=== PATIENT | female | born 2000 | race Caucasian/White ===

== ENCOUNTER 2025-04-09 11:11 | Emergency (ER) | payer OTHER, SELFPAY ==
--- OUTSIDE RECORDS SUMMARY | 2025-04-09 11:14 | XMS_ITS | Clinical Summary ---
Author Organization [facility] Address [address] [place] [address] Care Team Providers Care Quality Control Chemist Name Role Phone None, Provider MD Unavailable Unavailable None, Provider MD Primary Care Provider Unavaila ble Allergies No known active allergies Medications omeprazole (PRILOSEC) 20 MG capsule Take 2 capsules (40 mg total) by mouth 2 (two) times a day. Active ondansetron (ZOFRAN-ODT) 4 MG disintegrating tablet Take 1 tablet (4 mg total) by mouth every 8 (eight) hours as needed for Nausea. 20 tablet 07/12/20 24 Active Additional Information Patient not taking.Reported on 09/10/2024 HYDROcodone-acetam inophen (NORCO) 5-325 MG tabletIndications: Acute Pain < 3 Day Supply Take 1 tablet by mouth every 6 (six) hours as needed for Pain. Indications: Acute Pain < 3 Day Supply 10 tablet 07/12/20 24 Active Additional Information Patient not taking.Reported on 09/10/2024 Active Problems Problem Noted Date Diagnosed Date Closed fracture of proximal phalanx of thumb 05/2025 Constipation 09/10/2024 Contact dermatitis 09/10/2024 Overview (09/10/2024): moisture dermatitis with chapped irritated skin at hands after chronic washing. reassure. suggest aggressive lubrication with thick emolient. should only require use of triamcinalone if inflammation develops. 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 Follow-up sooner for failure to improve, adverse reaction to medications or other concerns. Closed fracture involving joint 09/10/2024 Person consulting on behalf of another person Encounter for childcare instruction 09/10/2024 Diabetic eye exam ([facility]) 09/10/2024 Follow-up examination 09/10/2024 Overview (09/10/2024): Discussed options for Rx and recommended use of peeling agent. Lesions pared to remove tip of verrucous tissue as well as epidermal callus. Advised application of Mediplast each night with removal each AM and RTC 2-3wk for repeat paring. Nonspecific syndrome suggestive of viral illness 09/10/2024 Overview (09/10/2024): Negative rapid. Push fluids, rest, motrin or tylenol for pain or fevers. Will await results of strep screen. Discussed reasons for follow up at length with mother.. Postconcussion syndrome 09/10/2024 Rash 09/10/2024 Wart of hand 09/10/2024 Cholelithiasis 07/08/2024 Cholelithiases 07/08/2024 Calculus of common bile duct with obstruction External hemorrhoid 11/14/2023 Abdominal pain 11/14/2023 Closed fracture of head of right radius 04/09/20 23 Arthralgia of right elbow 04/09/2023 Right wrist pain 04/09/2023 Sprain of right wrist 04/09/2023 Patellar instability of left knee 11/05/2019 Overview (04/28/2020): Added automatically from request for surgery [id number] Patellofemoral pain syndrome of left knee 2018 Subluxation of patellofemoral joint 05/21/2019 Overview (04/28/2020): Added automatically from request for surgery [id number] Subcutaneous cyst 01/23/2018 Migraine without aura and wi thout status migrainosus, not intractable 10/16/2016 Overview (04/28/2020): Overview: Migraine Headaches History of headaches: End of 2014 or so. Frequency: Up to 5 times a month Location: Bilateral temporal Quality: Throbbing Onset/duration: Gradual/lasting a few hours or until morning Pain severity is rated 5/10 Improved from 9-10/10 Associated symptoms of + photophobia, phonophobia, rare nausea No vomiting, facial pallor, periorbital discoloration, muscle weakness or other neurologic dysfunction. Visual changes or aura: no Awaken from sleep: no Triggers discussed but no association with headache: sleep deprivation, exercise, foods, stress, school, noise Exercise makes the headache: unknown Sleep makes the headache: better Meds used, and dose - Tylenol. Imitrex is more helpful School days missed: None this school year Imaging: MRI brain-normal at [facility] on 08/09/2016 Sleep: About 8 hours a night. No snoring/restlessness. Electronics in bedroom but away from bed Hydration: More water than in past, no daily caffeine. Hydration is improved but could do better Skipped meals: Continue to skip breakfast Last Assessment & Plan: Improved headache frequency and intensity Encouraged continued good lifestyle practices such as good hydration, avoiding CAFFEINE DAILY, and eating breakfast daily. Also continue good sleep practices. Children and teens need between 7-11 hours of sleep each night. It is important to go to bed about the same time each night and get up at the same time each morning, both on weekends and week days. It maybe easier to enforce wake-up time than going to sleep time. NO ELECTRONICS IN BEDROOM OTHERS THINGS TO AVOID: Dehydration, loud noises, bright lights, certain smells, possible foods etc. These may make headaches worse or trigger a headache. Refilled Imitrex. Can use NSAIDs also as needed. No daily preventative medication. Scoliosis 10/17/2015 Resolved Problems Problem Noted Date Diagnosed Date Resolved Date No known problems 09/10/2024 09/14/2024 Crohn's disease ([facility]) 05/02/2020 07/12/2024 Overview (05/02/2020): Added automatically from request for surgery [id number] Encounters Date Type Department Care Team Description 04/09/2025 Travel from Last 3 Months Immunizations Immunization Administration Dates Next Due Dtap (Acel-Immune) 05/15/2006, 3,01/01/2002,11/18,2001 Hepatitis A (Generic) 12/27/2006,05/15/2006 Hepatitis B Pediatric 2001 Hib (PedvaxHIB)3 Dose 2001 Hib-Hepatitis B (Comvax) 2002,2001 Influenza Adult (Generic) 10/16/2017 MMR (MMRII) 05/15/2006,2002 MODERNA COVID-19 (12+) MRNA, LNP-S, PF, 100 MCG/ 0.5 ML DOSE 02/03/2021,01/31/2021,01/04/2021 Meningococcal (Menactra) 10/16/2017,01/29/2013 Pneumococcal (Prevnar 7) 05/04/2003,2001 Polio IPV (Ipol) 05/15/2006, 3,2001,08/29 Td (TDVAX) 08/20/2023 Tdap (Generic) 01/29/2013 Varicella (Varivax) 03/24/2008,2002 Family History Medical History Relation Comments Cancer Father Diabetes Father Relation Status Comments Father Social History Tobacco Use Types Packs/Day Years Used Date Smoking Tobacco: Former Cigarettes Q uit: 03/18/2024 Passive Smoke Exposure: Past Smokeless Tobacco: Never Tobacco Cessation:Counseling Given: No Alcohol Use Standard Drinks/Week Comments Not Currently 0 (1 standard drink = 0.6 oz pure alcohol) social - 130 days as of 07/07/2024 [facility] Utilities Answer Date Recorded In the past 12 months has e Parenthoods, gas, oil, or water [employer] threatened to shut off services in your home? No 07/08/2024 Humiliation, Afraid, Rape, and Kick questionnair e Answer Date Recorded Within the last year, have y ou been afraid of your partner or ex-partner? No 07/08/2024 Within the last year, have y ou been humiliated or emotionally abused in other ways by your partner or ex-partner? No Within the last year, have y ou been kicked, hit, slapped, or otherwise physically hurt by your partner or ex-partner? No 07/08/2024 Within the last year, have y ou been raped or forced to have any kind of sexual activity by your partner or ex-partner? No 07/08/2024 AUDIT-C Answer Date Recorded Frequency of Alcohol Consumption Never 07/01/2018 Average Number of Drinks Not on file 018 Frequency of Binge Drinking Not on file 06/04 Overall Financial Resource Strain (CARDIA) Answe r Date Recorded How hard is it for you to pa y for the very basics like food, housing, medical care, and heating? Not hard at all 07/08/2024 PHQ-2 Answer Date Recorded Patient Health Questionnaire-2 Score 0 09/10/2024 Hunger Vital Sign Answer Date Recorded Within the past 12 months, y ou worried that your food would run out before you got the money to buy more. Never true 07/08/20 24 Within the past 12 months, t he food you bought just didn't last and you didn't have money to get more. Never true 07/08/2024 PRAPARE - Transportation Answer Date Re corded In the past 12 months, has l ack of transportation kept you from medical appointments or from getting medications? No 02/2024 In the past 12 months, has l ack of transportation kept you from meetings, work, or from getting things needed for daily living? No 07/08/2024 Housing Stability Vital Sign Answer Tigre e Recorded In the last 12 months, was t here a time when you were not able to pay the mortgage or rent on time? No 07/08/2024 In the past 12 months, how m any times have you moved where you were living? 0 07/08/2024 At any time in the past 12 m [facility], were you homeless or living in a retirement (including now)? No 07/08/2024 Comments No Sex and Gender Information Value Date Recorded Sex Assigned at Not on file Legal Sex Female 7:18 PM CDT Gender Identity Not on file Sexual Orientation Not on file Last Filed Vital Signs Vital Sign Reading Time Taken Comments Blood Pressure 103/64 09/10/2024 1:14 PM TRANSIT OPERATOR Pulse 79 09/10/2024 1:14 PM TRANSIT OPERATOR Temperature 36.3 C (97.3 F) 09/10/2024 1:14 PM TRANSIT OPERATOR Respiratory Rate 20 09/10/2024 1:14 PM TRANSIT OPERATOR Oxygen Saturation 99% 09/10/2024 1:14 PM TRANSIT OPERATOR Inhaled Oxygen Concentration - - Weight 69.9 kg (154 lb) 09/10/2024 1:14 PM TRANSIT OPERATOR Height 167.6 cm (5' 6) 09/10/2024 1:14 PM TRANSIT OPERATOR Body Mass Index 24.86 09/10/2024 1:14 PM TRANSIT OPERATOR Plan of Treatment Health Maintenance Due Date Last Done Comments Annual Physical 2004 HPV Vaccines (1 - 3-dose series) 2016 Meningococcal B Vaccine (1 of 2 - Standard) 2017 Pneumococcal Vaccine: Pediatrics (0 to 5 Years) and At-Risk Patients (6 to 49 Years) (1 of 2 - PCV) 2020 05/04/2003, 2001 COVID-19 Vaccine ( season) 2024 02/03/2021, 02/03/2021, 01/31/2021, Additional history exists Chlamydia Screening Females ages 16-24 01/12/2026 01/12/2025 Cervical Cancer Screening Pap Smear (Age 21 to 29) Every 3 Years 01/13/2028 01/12/2025 Cervical Cancer Screening 01/13/2028 DTaP, Tdap and Td Vaccines (8 - Td or Tdap) 08/20/2033 08/20/2023, 01/29/2013, 05/15/2006, Additional history exists Hepatitis B Vaccines Completed 2002, 2001, 2001 Meningococcal Vaccine Completed 10/16/2017, 013 PHQ-2 (Physician [place]) Completed 09/10/2024 Hepatitis C Completed 01/12/2025, 07/08/2024 RSV Immunizations Under 20 Months Aged Out No longer eligible based on patient's age to complete this topic Goals Goal Patient Goal Type Associated Problems Recent Progress Patient-Stated? Author Health - patient able to perform ADLs independently Lifestyle No Ada person, Jamaal Munguia dough scaler and mixer Procedure Name Priority Date/Time Associated Diagnosis Comments HEPATITIS PANEL,ACUTE Routine 07/08/2024 1:38 PM TRANSIT OPERATOR from Last 3 Months or Most Recently Relevant to Health Maintenance Results * HEPATITIS PANEL,ACUTE (07/08/2024 1:38 PM TRANSIT OPERATOR) HEPATITIS B SURFACE AG NON-REACTI VE NON-REACTI VE 07/09/2024 3:43 AM TRANSIT OPERATOR [facility] HEP B CORE IGM NON-REACTI VE NON-REACTI VE 07/09/2024 3:43 AM TRANSIT OPERATOR [facility] HAV IGM NON-REACTI VE NON-REACTI VE 07/09/2024 3:43 AM TRANSIT OPERATOR [facility] HEPATITIS C AB NON-REACTI VE NON-REACTI VE 07/09/2024 3:43 AM TRANSIT OPERATOR [facility] 07/08/2024 1:38 PM TRANSIT OPERATOR Gustavo Isabel Garcia [facility] Final Result [facility] [address] [place] [address], from Last 3 Months or Most Recently Relevant to Health Maintenance Insurance MEDICAID Advance Directives * Full Code (Latest Code Status on File) Date Activated Date Inactivated Comments 07/08/2024 7:08 PM 07/12/2024 2:26 PM * Full Code Date Activated Date Inactivated Comments 07/08/2024 12:30 PM 07/08/2024 7:01 PM Care Teams Quality Control Chemist Relationship Specialty Start Date End Date None, ProviderMD PCP - General UNKNOWN PHYSICIAN SPECIALTY 07/07/24 None, MD Ana 03/25/19
--- OUTSIDE RECORDS SUMMARY | 2025-04-09 11:14 | XMS_ITS | Clinical Summary ---
Author Organization [facility] Address [address] [place] [address] Care Team Providers Care Felt Hat Steamer Name Role Phone Christopher Villegas Primary Care Provi quirino Glenn Terrell MD Unavailable [phone] Allergies No known active allergies Medications SUMAtriptan (IMITREX) 25 mg tabletIndications: Migraine Take 25 mg by mouth. 01/22/20 18 Active ibuprofen (ADVIL,MOTRIN) 600 mg tablet 09/23/19 20 Active ondansetron ODT (ZOFRAN-ODT) 4 mg disintegrating tablet Take 1 tablet (4 mg total) by mouth every 6 (six) hours as needed for nausea 30 tablet 01/15/20 20 Active Additional Information Patient not taking.Reported on 04/06/2020 predniSONE (DELTASONE) 20 mg tablet TK 3 TS PO QD FOR 5 DAYS 03/20/20 20 Active dicyclomine (BENTYL) 10 mg capsule TAKE 1 CAPSULE BY MOUTH THREE TIMES DAILY NEEDED 05/06/20 20 Active nitrofurantoin monohydrate (MACROBID) 100 mg capsule 05/16/20 20 Active naproxen (NAPROSYN) 500 mg tablet 04/20/20 20 Active amoxicillin-clavul anate (AUGMENTIN) 875-125 mg per tablet Take 1 tablet by mouth 2 (two) times a day 09/28/19 21 Active chlorhexidine (PERIDEX) 0.12 % solution SWISH AND SPIT 10 ML BY MOUTH THREE TIMES DAILY 09/28/19 21 Active oxyCODONE-acetamin ophen (PERCOCET) 5-325 mg per tablet TAKE 1/2 TO 1 TABLET BY MOUTH EVERY 4 TO 6 HOURS NEEDED FOR PAIN. MAXIMUM DAILY DOSE IS 4 TABLETS 09/28/19 21 Active Active Problems Problem Noted Date Diagnosed Date Crohn's disease 05/02/2020 Overview (05/18/2020): Added automatically from request for surgery [id number] Subluxation of left patella 11/05/2019 Overview (11/05/2019): Added automatically from request for surgery [id number] Patellar instability of left knee 11/05/2019 Overview (11/05/2019): Added automatically from request for surgery [id number] Patellofemoral pain syndrome of left knee 2018 Patellar subluxation, left, initial encounter Subcutaneous cyst 01/23/2018 Migraine without aura and wi thout status migrainosus, not intractable 10/16/2016 Overview (05/18/2020): Migraine Headaches History of headaches: End of [...] this school year Imaging: MRI brain-normal at [facility] on 08/09/2016 Sleep: About 8 hours a [...] Problem Noted Date Diagnosed Date Resolved Date Hematochezia 01/05/2016 02/13/2018 Left upper quadrant abdominal tenderness 08/11/2015 02/13/2018 Right upper quadrant abdominal tenderness 08/11/2015 02/13/2018 Decrease in appetite 08/11/2015 018 Knee pain 10/25/2014 02/13/2018 Arthralgia of hip 12/21/2013 02/13/2018 Surgical History Surgery Date Site/Laterality Comments COLONOSCOPY 02/16/2016 OTHER SURGICAL HISTORY 02/27/2019 excision of forearm cyst Medical History Medical History Date Comments Arthralgia of hip 12/21/2013 Closed fracture of phalanx o f left index finger Closed fracture of phalanx o f left index finger - (Added by TW Conv) Hematochezia Closed displaced fracture of neck of right radius Closed fracture of neck of r ight radius - (Added by TW Conv) Knee pain Febrile seizure (HCC) reported b y mom, not confirmed by clinician Patellar instability of left knee 11/05/2019 Added automatically from request for surgery [id number] Subluxation of left patella 11/05/2019 Adde d automatically from request for surgery [id number] Patellar subluxation, left, initial encounter 05/21/2019 Migraines Family History Medical History Relation Name Comments Diabetes Father Family history of diabetes mellitus - (Added by TW Conv) Cholelithiasis Mother Family histor y of cholelithiasis - (Added by TW Conv) Relation Name Status Comments Father Mother Alive Social History Tobacco Use Types Packs/Day Years Used Date Smoking Tobacco: Never Smokeless Tobacco: Never Personal Safety Answer Date Recorded Getting School Help Needed Not on file 10/26 Comments Unknown Sex and Gender Information Value Date Recorded Sex Assigned at Not on file Legal Sex Female 6:04 AM SIGNAL TOWER OPERATOR Gender Identity Not on file Sexual Orientation Straight 01/08/2020 12 :26 PM CDT Obstetrics History Last Filed Vital Signs Vital Sign Reading Time Taken Comments Blood Pressure 119/67 01/18/2020 5:02 PM CDT Pulse 70 01/18/2020 5:02 PM CDT Temperature 36.3 C (97.3 F) 01/18/2020 5:14 PM CDT Respiratory Rate 15 01/18/2020 5:02 PM CDT Oxygen Saturation 100% 01/18/2020 5:02 PM CDT Inhaled Oxygen Concentration - - Weight 74.8 kg (164 lb 14.5 oz) 020 11:05 AM CDT Height 167 cm (5' 5.75) 01/18/2020 11: 05 AM CDT Body Mass Index 26.82 01/18/2020 11:05 AM CDT Plan of Treatment Not on file Medical Devices Implanted Type Area Scalder Device Identifier Shelf Expiration Date Model / Serial / Lot [employer] [id number] Screw Interference Biosure Car L20 Mm Od6 Mm Acl Pcl Versatility Graft Fixation - [id number] Implanted:Qty: 1 on 01/18/2020 by Glenn Terrell MD at [facility] Left: Knee [employer] 04/22/2024 [id number] / / [id number] [employer] [id number] Q-Fix 2.8mm Sedan Suture - [id number] Implanted:Qty: 1 on 01/18/2020 by Glenn Terrell MD at [facility] Left: Knee [employer] 05/20/2022 25-2800 / / [id number] [employer] 25-2800 Q-Fix 2.8mm Sedan Suture - [id number] Implanted:Qty: 1 on 01/18/2020 by Glenn Terrell MD at [facility] Left: Knee [employer] 05/20/2022 25-2800 / / [employer] [id number] Allograft Frozen Irradiate Graft Soft Tissue Semitendinosus - [id number] Implanted:Qty: 1 on 01/18/2020 by Glenn Terrell MD at [facility] Left: Knee [employer] 04/04/2023 [id number] / / [id number] Insurance [facility] CLAIMS [facility] CLAIMS [facility] CLAIM[facility] Advance Directives For more information, please contact: [phone] Documents on File Type Date Recorded Patient Copyist Expl anation ADVANCE DIRECTIVE 12/14/2020 2:44 PM ADVANCE DIRECTIVE 05/18/2020 10:59 AM ADVANCE DIRECTIVE 01/18/2020 11:21 AM * Full Code (Latest Code Status on File) Date Activated Date Inactivated Comments 02/28/2018 8:32 AM 02/28/2018 11:17 AM Care Teams Felt Hat Steamer Relationship Specialty Start Date End Date Christopher Villegas DO PCP - General Pediatrics 05/13/19 Glenn Terrell MD [address] [address] Surgeon Pediatric Orthopedic Surgery 01/18/20
--- OUTSIDE RECORDS SUMMARY | 2025-04-09 11:14 | XMS_ITS | Encounter Summary ---
Author Organization [facility] Address [address] [place] [address] Care Team Providers Care Hotel Controller Name Role Phone None, Provider MD Unavailable Unavailable None, Provider MD Primary Care Provider Unavaila ble Encounter Details Date Type Department Care Team (Latest Contact Info) Description 04/09/2025 Travel Social History Tobacco Use Types Packs/Day Years Used Date Smoking Tobacco: Former Cigarettes Q uit: 03/18/2024 Passive Smoke Exposure: Past Smokeless Tobacco: Never Alcohol Use Standard Drinks/Week Comments Not Currently 0 (1 standard drink = 0.6 oz pure alcohol) social - 130 days as of 07/07/[address] [facility] Utilities Answer Date Recorded In the past 12 months has e electric, gas, oil, or water company threatened to shut off services in your [...] Frequency of Binge Drinking Not on file 10/3 Overall Financial Resource Strain (CARDIA) Answe r [...] any time in the past 12 m [facility], were you homeless or living in a halfway (including now)? No 07/08/2024 Comments No Sex and Gender Information Value Date Recorded Sex Assigned at Not on file Legal Sex Female 7:18 PM CDT Gender Identity Not on file Sexual Orientation Not on file documented as of this encounter Functional Status * Are you deaf or do you have serious difficulty hearing Answer Date of Assessment Author Status No 07/08/2024 9:03 PM Harrison Chan se, RN Active * Are you blind or do you have serious difficulty seeing, even when wearing glasses? Answer Date of Assessment Author Status No 07/08/2024 9:03 PM Harrison Chan se, RN Active * Do you have serious difficulty walking or climbing stairs? Answer Date of Assessment Author Status No 07/08/2024 9:03 PM Harrison Chan se, RN Active * Do you have difficulty dressing or bathing? Answer Date of Assessment Author Status No 07/08/2024 9:03 PM Harrison Chan se, RN Active * Because of a physical, mental, or emotional condition, do you have difficulty doing errands alone such as visiting a doctor's office or shopping? Answer Date of Assessment Author Status No 07/08/2024 9:03 PM Harrison Chan se, RN Active documented as of this encounter Mental Status * Because of a physical, mental, or emotional condition, do you have serious difficulty concentrating, remembering, or making decisions? Answer Entry Date Author Status No 07/08/2024 9:03 PM Harrison Chan se, RN Active documented in this encounter Plan of Treatment Not on file documented as of this encounter Goals Goal Patient Goal Type Associated Problems Recent Progress Patient-Stated? Author Health - patient able to perform ADLs independently Lifestyle No Ada person, Jamaal Munguia RN documented as of this encounter Visit Diagnoses Not on filedocumented in this encounter Care Teams Hotel Controller Relationship Specialty Start Date End Date None, ProviderMD PCP - General UNKNOWN PHYSICIAN SPECIALTY 07/07/24 None, MD Ana 03/25/19 documented as of this encounter
--- OUTSIDE RECORDS SUMMARY | 2025-04-09 11:14 | XMS_ITS | Encounter Summary ---
Author Organization [facility] Address [address] [place] [id number] Care Team Providers Care Anode Builder Name Role Phone None, Provider Unavailable Unavailable Christopher Villegas MD Primary Care Provider [phone] None, Provider Primary Care Provider Unavaila ble Encounter Details Date Type Department Care Team (Late st Contact Info) Description 05/02/2020 Prep for Procedure [facility] [address] [place], [place] [id number] Stephen Tomlinson MD [address] [address] Social History Tobacco Use Types Packs/Day Years Used Date Smoking Tobacco: Never Smokeless Tobacco: Never Alcohol Use Standard Drinks/Week Comments No 0 (1 standard drink = 0.6 oz pur e alcohol) AUDIT-C Answer Date Recorded Frequency of Alcohol Consumption Never 07/01/2018 Average Number of Drinks Not on file 018 Frequency of Binge Drinking Not on file 06/04 Comments Unknown Sex and Gender Information Value Date Recorded Sex Assigned at Not on file Legal Sex Female 7:18 PM CDT Gender Identity Not on file Sexual Orientation Not on file COVID-19 Exposure Response Date Recorded In the last month, have you been in contact with someone who was confirmed or suspected to have Coronavirus / COVID-19? No / Unsure 05/03/2020 2:24 PM CDT documented as of this encounter Plan of Treatment Not on file documented as of this encounter Results * PRE-SURGICAL/PRE-PROCEDURE CORONAVIRUS (COVID 19) (05/03/2020 2:57 PM CDT) CORONAVIRUS SARS COV 2 PCR (RESP) NOT DETECTED NOT DETECTED 05/04/2020 5:01 PM CDT [facility] Comment: A Not Detected (negative) test result for this test means that SARS- CoV-2 RNA was not present in the specimen above the limit of detection. A negative result does not rule out the possibility of COVID-19 and should not be used as the sole basis for treatment or patient management decisions. If COVID-19 is still suspected, based on exposure history together with other clinical findings, re-testing should be considered in consultation with public health authorities. Laboratory test results should always be considered in the context of clinical observations and epidemiological data in making a final diagnosis and patient management decisions. Please review the Fact Sheets and FDA authorized labeling available for health care providers and patients using the following websites: https://[email or web address].TalentClick/home/Covid-19/HCP/NAAT/fact-sheet2 https://[email or web address].TalentClick/home/Covid-19/Patients/NAAT/ fact-sheet2 This test has been authorized by the FDA under an Emergency Use Authorization (EUA) for use by authorized laboratories. Due to the current public health emergency, [facility] is receiving a high volume of samples from a wide variety of swabs and media for COVID-19 testing. In order to serve patients during this public health crisis, samples from appropriate clinical sources are being tested. Negative test results derived from specimens received in non-commercially manufactured viral collection and transport media, or in media and sample collection kits not yet authorized by FDA for COVID-19 testing should be cautiously evaluated and the patient potentially subjected to extra precautions such as additional clinical monitoring, including collection of an additional specimen. Methodology: Nucleic Acid Amplification Test (NAAT) includes PCR or TMA Additional information about COVID-19 can be found at the [facility] website: www.[employer].TalentClick/Covid19. Test performed at [facility] [address] [address] [place] [address] Director: MATI FLORIAN DO,MPH NASOPHARYNGEAL SWAB / Unknown 05/03/2020 2:57 PM CDT us Stephen Tomlinson MD MICROBIOLOGY - GENERAL ORDERABLE S Final Result [facility] [address] [place] [address], documented in this encounter Visit Diagnoses Diagnosis Preop testing- Primary Preoperative examination, unspecified documented in this encounter Additional Health Concerns Infection Onset Date Last Indicated Resolved Time COVID-19 Rule Out 05/03/2020 05/03/2020 05/04/2020 5:01 PM CDT COVID-19 Rule Out 01/18/2021 01/18/2021 01/20/2021 2:25 PM CDT COVID-19 Rule Out 08/18/2021 08/18/2021 08/19/2021 7:56 AM MANAGER CLINICAL RESEARCH COVID-19 Rule Out 03/13/2022 03/13/2022 03/14/2022 6:47 PM CDT COVID-19 Rule Out 08/05/2022 08/05/2022 08/05/2022 12:26 PM MANAGER CLINICAL RESEARCH COVID-19 Rule Out 10/09/2022 10/09/2022 10/09/2022 2:47 AM MANAGER CLINICAL RESEARCH COVID-19 Rule Out 10/26/2022 10/26/2022 10/26/2022 1:16 AM MANAGER CLINICAL RESEARCH COVID-19 Rule Out 08/07/2023 08/07/2023 08/07/2023 12:52 AM MANAGER CLINICAL RESEARCH COVID-19 Rule Out 10/14/2023 10/14/2023 10/14/2023 2:23 PM MANAGER CLINICAL RESEARCH documented as of this encounter Care Teams Anode Builder Relationship Specialty Start Date End Date Christopher Villegas MD [address] [place] [id number] PCP - General 05/27/19 07/06/24 None, Provider, PCP - General UNKNOWN PHYSICIAN SPECIALTY 07/07/24 None, ProviderMD 03/25/19 documented as of this encounter
--- OUTSIDE RECORDS SUMMARY | 2025-04-09 11:14 | XMS_ITS | Clinical Summary ---
Author Organization [facility] [employer] Address [address] [place] [address] Care Team Providers Care Board Mixer Tender Name Role Phone Anali Ballesteros MD Primary Care Provider Source Comments [facility],non-owned Affiliates and Associated Physician Practices is amultiple site organization consisting of ambulatory clinics and hospital sitesin [place], [place], [place] and [place]. This disclosure is being madepursuant to the Care Everywhere program and may not contain all information available regarding this patient. Last updated 18.[facility] [employer] Allergies No known active allergies Medications * Be aware that medications may not be up to date on this document. Alwaysverify current medications with the patient. omeprazole (PriLOSEC) 40 MG capsule Take 1 (one) capsule by mouth once daily 90 capsule 5 Active dicyclomine (Bentyl) 10 MG capsule Take 1 (one) capsule by mouth 4 times daily as needed 120 capsule 5 Active lidocaine (Lidoderm) 5 % patch Apply 1 (one) patch to skin once daily Apply patch to most painful area and remove after 12 hours. May reapply a new patch 12 hours later. Active ondansetron, disintegrating, (Zofran ODT) 4 MG tablet Take 1 (one) tablet by mouth every 6 hours as needed for Nausea/Vomiti ng Allow tablet to dissolve on the tongue 90 tablet 1 5 Active metoclopramide (Reglan) 5 MG tabletIndicatio ns:Gastroparesi s Take 1 (one) tablet by mouth 3 times daily before meals 90 tablet 5 Active dicyclomine (Bentyl) 10 MG capsule Take 1 (one) capsule by mouth 4 times daily 120 capsule 2 5 03/12/20 25 Discontinu ed(Reorder ) omeprazole (PriLOSEC) 20 MG capsule Take 1 (one) capsule by mouth once daily 30 capsule 2 5 03/12/20 25 Discontinu ed(Reorder ) ondansetron, disintegrating, (Zofran ODT) 4 MG tablet Take 1 (one) tablet by mouth every 6 hours as needed for Nausea/Vomiti ng Allow tablet to dissolve on the tongue 90 tablet 1 5 03/12/20 25 Discontinu ed(Reorder ) Active Problems Problem Noted Date Diagnosed Date Granuloma annulare 09/10/2024 Intermittent alternating exotropia 09/10/2024 External hemorrhoid 11/14/2023 Migraine without aura and wi thout status migrainosus, not intractable 10/16/2016 Overview (01/21/2018): Migraine Headaches History of headaches: End of [...] this school year Imaging: MRI brain-normal at [facility] on 08/09/2016 Sleep: About 8 hours a night. No snoring/restlessness. Electronics in bedroom but away from bed Hydration: More water than in past, no daily caffeine. Hydration is improved but could do better Skipped meals: Continue to skip breakfast Assessment & Plan (01/21/2018 3:54 PM CDT): Improved headache frequency and intensity Encouraged continued [...] also as needed. No daily preventative medication. Assessment & Plan (06/03/2017 1:14 PM CDT): Migraine headaches Keep Headache diary for next 2 months. Discussed Life habits that may worsen headaches: Niko struggles with inconsistent sleep patterns, improved hydration and poor morning diet. Encouraged improvmeent in these habits to improved headache control. See pt instructions for details Medications: Abortive medications (help the pain go away): NSAIDs (naproxen/NAPROSYN/Motrin/Advil/Tylenol) or Imitrex as needed. Prophylactic medications (taken daily to help decrease the number of headaches): NONE Consider Topamax in future but Niko does not like taking medications. Assessment & Plan (02/26/2017 9:21 AM CDT): Migraine headaches about 2 times per month Keep Headache diary for next 2 months. Discussed following habits that may worsen headaches: 1. Sleep. Recommended closer to 8-10 hours sleep. Mom to reinforce wake up time. Yzabelle to remove electronics from bedroom. To begin Melatonin 3 mg at bedtime as needed. 2. AVOID CAFFEINE DAILY 3. OTHERS THINGS TO AVOID: Dehydration, loud noises, bright lights, certain smells, possible foods etc. 4. EAT 3 MEALS A DAY. Do not skip meals such as breakfast. 5. Discussed when to seek immediate medical attention if your child's headache awakens them from sleep, if has vomiting without nausea, has numbness or tingling, changes in vision, weakness, seizure, fever or stiff neck with headache, confusion, balance/coordination changes or if has the worsening headache pain. Medications: Abortive medications (help the pain go away): Imitrex Or Tylenol at first onset of migraine headache Prophylactic medications (taken daily to help decrease the number of headaches): None at this time Follow-up visit in 3 month, or sooner as needed Assessment & Plan (10/18/2016 2:56 PM TIRE BLADDER MAKER): Additional workup: Recommended eye exam Keep Headache diary for next 2 months and call to discuss. Life habits that may worsen headaches: Areas of concern: Sleep, hydration, and missing breakfast. Niko agrees to work on hydration first Medications: Abortive medications (help the pain go away): Imitrex (sumatriptan) and/or Tylenol. Can also take benadryl or melatonin to induce sleep and ondansetron for nausea. Prophylactic medications (taken daily to help decrease the number of headaches): None at this time Follow-up visit in 3 month, or sooner as needed should symptoms worsen or fail to respond to treatment plan as outlined. Scoliosis 10/17/2015 Resolved Problems Problem Noted Date Diagnosed Date Resolved Date Diabetic eye exam 09/10/2024 12/11/2024 Constipation 09/10/2024 01/07/2025 Closed fracture involving joint 09/10/2024 12/11/2024 Closed fracture of proximal phalanx of thumb 12/11/2024 Acute mucoid otitis media 09/10/2024 Overview (12/10/2024): Complete her medications as prescribed. Follow-up sooner for failure to improve, adverse reaction to medications or other concerns. Cholelithiasis 07/08/2024 12/11/2024 Calculus of common bile duct with obstruction 07/08/20 24 12/11/2024 Sprain of right wrist 04/09/20232024 Right wrist pain 04/09/2023 12/11/2024 Closed fracture of head of right radius 04/09/2023 12/11/2024 Crohn's disease 05/02/2020 12/11/2024 Overview (12/10/2024): Added automatically from request for surgery [id number] Patellar instability of left knee 11/05/2019 12/11/2024 Overview (12/10/2024): Added automatically from request for surgery [id number] Patellofemoral pain syndrome of left knee 05/21/2019 12/11/2024 Subcutaneous cyst 01/23/2018 12/11/2024 Closed fracture of distal ph alanx or phalanges of hand 05/26/2010 12/11/2024 Encounters Date Type Department Care Team Description 03/29/2025 Orders Only [facility] - [facility] [address] [place] [address] Radha Wright APRN-CNP Gastroparesis 03/29/2025 Results Follow-Up [facility] [place] [address] [place] [phone] Radha Wright APRN-CNP 03/23/2025 10:08 AM CDT - 03/23/2025 11:59 PM CDT Hospital Encounter [facility] NUCLEAR MEDICINE [address] [place] [phone] Radha Wright APRN-CNP Discharge Disposition: Home or Self Care 03/23/2025 8:57 AM CDT - 03/23/2025 10:07 AM CDT Hospital Encounter [facility] NUCLEAR MEDICINE [address] [place] [phone] Radha Wright APRN-CNP Discharge Disposition: Home or Self Care 03/23/2025 Travel 03/12/2025 9:00 AM CDT Office Visit [facility] - Family Medicine [address] [place] [phone] Alondra Johansen, GABE-NICKO Nausea without vomiting (Primary Dx); Diarrhea, unspecified type; Abdominal cramping; Acute on chronic pain of left knee 03/12/2025 Travel 03/10/2025 9:30 AM CDT Office Visit [facility] - GI [address] [facility] [place] [address] Alisia Sosa MD Coke-Attewell, Michelle, CEMENTER HAND-CAGE TENDER Nausea without vomiting (Primary Dx); Abdominal cramping; Diarrhea, unspecified type 03/10/2025 Telephone [facility] ENDOSCOPY [address] [place] [phone] Artem Miller, RN Scheduling Outreach (Hydrogen/Methane Breath Test scheduling attempt x1/) 03/10/2025 Travel 01/20/2025 Results Follow-Up [facility] Medicine [address] [facility] [place] [address] Alondra Johansen, CEMENTER HAND-CAGE TENDER 01/13/2025 Orders Only [facility] [address] [facility] [place] [address] Alondra Johansen, CEMENTER HAND-CAGE TENDER 01/13/2025 Results Follow-Up [facility] [address] [facility] [place] [address] Alondra Johansen, CEMENTER HAND-CAGE TENDER from Last 3 Months Immunizations Immunization Administration Dates Next Due Covid Moderna primary monova lent 12+ yr 0.5mL 02/03/2021,02/02/2021,01/31/2021,01/04,01/03/2021 DTaP VACCINE IM (6wk-6yrs) 05/15/2006,,01/01/2002,11/18,2001 HEP A PED/ADULT VACCINE 12/27/2006,05/15/2006 HEP B VACCINE, PED/ADOL 2001 HIB Hep B 2002,2001 HIB-PRP-OMP 3 DOSE 2001 INFLUENZA VACCINE 10/16/2017 MENINGOCOCCAL ACWY (MCV4P) VAC IM 10/16/2017, MMR 05/15/2006,2002 PNEUMOCOCCAL PCV7 CONJ, PEDS 05/04/2003,08/29/20 01 POLIO IPV 05/15/2006, 3,2001,08/29 TDAP (7yrs+) 01/29/2013 Td (Adult), 2 Lf Tetanus Tox oid, Adsorbed, Pf 08/20/2023 VARICELLA 03/24/2008,2002 Family History Medical History Relation Name Comments Diabetes; unknown type Father Hypertension Father None Known Maternal Aunt Diabetes; unknown type Maternal Grandfather None Known Maternal Grandmother None Known Maternal Uncle Hypertension Mother None Known Other Diabetes; unknown type Paternal Aunt Diabetes; unknown type Paternal Grandfather Diabetes; unknown type Paternal Grandmother None Known Paternal Uncle Polycystic Ovary Syndrome Sister 1 Noemi Relation Name Status Comments Father Alive Maternal Aunt Maternal Grandfather Maternal Grandmother Maternal Uncle Mother Alive Other Paternal Aunt Alive Paternal Grandfather Paternal Grandmother Alive Paternal Uncle Sister 1 Noemi Alive Sister 2 Radha Alive Social History Tobacco Use Types Packs/Day Years Used Date Smoking Tobacco: Never Smokeless Tobacco: Never Tobacco Cessation:Counseling Given: No Alcohol Use Standard Drinks/Week Comments Not Currently 0 (1 standard drink = 0.6 oz pur e alcohol) PHQ-2 Answer Date Recorded Patient Health Questionnaire-2 Score 2 03/12/2025 Comments No Sex and Gender Information Value Date Recorded Sex Assigned at Not on file Legal Sex Female 10:31 AM TIRE BLADDER MAKER Gender Identity Not on file Sexual Orientation Not on file Last Filed Vital Signs Vital Sign Reading Time Taken Comments Blood Pressure 94/62 03/12/2025 9:02 AM CDT Pulse 70 03/12/2025 9:02 AM CDT Temperature 36.9 C (98.5 F) 03/12/2025 9:02 AM CDT Respiratory Rate - - Oxygen Saturation 99% 03/12/2025 9:02 AM CDT Inhaled Oxygen Concentration - - Weight 71.4 kg (157 lb 8 oz) 03/12/2025 9:02 AM CDT Height 167.6 cm (5' 6) 03/10/2025 9:34 AM CDT Body Mass Index 25.42 03/10/2025 9:34 AM CDT Plan of Treatment Upcoming Encounters Date Type Department Care Team (Latest Contact Info) Description 04/23/2025 9:00 AM CDT Hospital Encounter [facility] ENDOSCOPY [address] [place] [address] Surgery General 04/23/2025 9:00 AM CDT - 04/23/2025 9:30 AM CDT Surgery [facility] ENDOSCOPY [address] [place] [phone] Procedure, Nursing G_I BREATH HYDROGEN/METHANE TEST 07/12/2025 10:00 AM TIRE BLADDER MAKER Office Visit [facility] - [facility] [address] [facility] [place] [phone] Radha Wright, CEMENTER HAND-[facility] [address] [place] [phone] 12/14/2025 9:00 AM CDT Office Visit [facility] - Family Medicine [address] [facility], [address] [phone] Alondra Johansen, CEMENTER HAND-[facility] [address] [phone] Scheduled Procedures Name Priority Associated Diagnoses Date/Ti me BREATH HYDROGEN/METHANE TEST Nausea Abdominal cramping Diarrhea, unspecified type 04/23/2025 9:00 AM CDT Health Maintenance Due Date Last Done Comments HPV VACCINE (1 - 3-dose series) 2016 MENINGOCOCCAL (Group B) VACCINE SHARED DECISION-MAKING (1 of 2 - Standard) 2017 PAP SMEAR 2022 COVID-19 VACCINE ( season) 2024 02/03/2021, 02/02/2021, 01/31/2021, Additional history exists INFLUENZA VACCINE (#1) 2025 10/16/2017 CHLAMYDIA/GONORRHEA SCREENING 01/12/2026 01/12/2025 DTAP/TDAP/TD VACCINES (8 - Td or Tdap) 08/20/2033 08/20/2023, 01/29/2013, 05/15/2006, Additional history exists ZOSTER VACCINE (1 of 2) 2051 HEPATITIS B VACCINE Completed 2002, 2001, 2001 HIB VACCINE Completed 2002, 10/31, 2001 PNEUMOCOCCAL VACCINE Aged Out 05/04/2003, 08/29/20 01 No longer eligible based on patient's age to complete this topic MENINGOCOCCAL GROUPS A/C/Y/W VACCINE Completed 10/16/2017, 01/29/2013 DEPRESSION SCREENING Completed 12/11/2024 HEPATITIS C SCREENING Completed 01/12/2025, 024 HIV SCREENING Completed 01/12/2025 Goals Goal Patient Goal Type Associated Problems Recent Progress Patient-Stated? Author Medication Management General On track( 025 9:26 AM CDT) Artem Matthews, RN Note: Expected end date: ongoing Interventions: Take all medications as prescribed Let your doctor know right away about any changes in your medications Make sure to request a refill of your medication at least one week prior to your last dose Procedures Procedure Name Priority Date/Time Associated Diagnosis Comments NM GASTRIC EMPTYING Routine 03/23/2025 3 :17 PM CDT Nausea without vomiting Abdominal cramping Diarrhea, unspecified type CULTURE STOOL PANEL Routine 01/13/2025 1 2:16 PM CDT OCCULT BLOOD FECES FIT IMMUNOASSAY Routine 01/13/2025 10:00 AM CDT Diarrhea, unspecified type Nausea and vomiting, unspecified vomiting type Generalized abdominal pain HIV-1 HIV-2 ANTIBODY + HIV P24 AG PANEL Routine 01/12/2025 12:05 PM CDT Screen for STD (sexually transmitted disease) HEPATITIS C ANTIBODY Routine 01/12/2025 12:05 PM CDT Screen for STD (sexually transmitted disease) TSH HI LOW REFLEX FREE T4 Routine 01/12/2025 12:05 PM CDT Thyroid disorder screen CHLAMYDIA + GC AMPLIFIED PROBE Routine 01/12/2025 12:05 PM CDT Screen for STD (sexually transmitted disease) from Last 3 Months Results * NM Gastric Emptying (03/23/2025 3:17 PM CDT) Anatomical Region Laterality Modality Abdomen Nuclear Medicine 03/23/2025 2:28 PM CDT Impressions 03/24/2025 10:17 AM CDT IMPRESSION: 1.Grade 3 -severe gastroparesis- with 48% of meal remaining in the stomach at 4 hours. > Dictated by Mahdi Vicenta Russell Dr (General Accountant) 03/23/2025 2:28 PM IAllan MD have personally reviewed and interpreted this examination/study. > Interpreting Provider: Allan Somers MD on 03/24/2025 10:17 AM Narrative 03/24/2025 10:17 AM CDT PROCEDURE: NM GASTRIC EMPTYING DATE/TIME OF EXAM: 03/23/2025 2:28 PM CLINICAL INFORMATION: None relevant/not provided if blank. COMPARISON: None. HISTORY: 24-year-old female s/p lap marlee who presented for evaluation of chronic nausea and vomiting. TECHNIQUE: The patient ingested the standard solid meal labeled with 0.515 mCi of technetium-99m sulfur colloid within 10 minutes which was composed of eggs and toast. Static anterior and posterior imaging of the abdomen was performed over at multiple time points up to 4 hours after meal ingestion. Estimation of residual meal within the stomach was performed using decay corrected activity with calculation of geometric mean. Patient's BMI is 25.42 kg/m . FINDINGS: The images demonstrate ingested activity within the normal contours of the stomach. There is progressive emptying of gastric contents into the small bowel. The % of meal remaining in the stomach at zepead time points after ingestion was: 80.2% @ 1 hour (normal range 30-90%) 69.94% @ 2 hours (normal range <60%) 48.29% @ 4 hours (normal range <10%) Severity of gastroparesis is: grade 1 (mild): 11-20% retention at 4 h grade 2 (moderate):21-35% retention at 4 h grade 3 (severe): 36-50% retention at 4 h grade 4 (very severe): >50% retention at 4 h Procedure Note Allan Somers MD - 03/24/2025 PROCEDURE: NM GASTRIC EMPTYING DATE/TIME OF EXAM: 03/23/2025 2:28 PM CLINICAL INFORMATION: None relevant/not provided if blank. COMPARISON: None. HISTORY: 24-year-old female s/p lap marlee who presented for evaluationof chronic nausea and vomiting. TECHNIQUE: The patient ingested the standard solid meal labeled with0.515 mCi of technetium-99m sulfur colloid within 10 minutes which wascomposed of eggs and toast. Static anterior and posterior imaging of the abdomenwas performed over at multiple time points up to 4 hours after mealingestion. Estimation of residual meal within the stomach was performed using decay corrected activity with calculation of geometric mean. Patient's BMI is 25.42 kg/m . FINDINGS: The images demonstrate ingested activity within the normal contours of the stomach. There is progressive emptying of gastriccontents into the small bowel. The % of meal remaining in the stomach at zepeda time points afteringestion was: 80.2% @ 1 hour (normal range 30-90%) 69.94% @ 2 hours (normal range <60%) 48.29% @ 4 hours (normal range <10%) Severity of gastroparesis is: grade 1 (mild): 11-20% retention at 4 h grade 2 (moderate):21-35% retention at 4 h grade 3 (severe): 36-50% retention at 4 h grade 4 (very severe): >50% retention at 4 h IMPRESSION: 1.Grade 3 -severe gastroparesis- with 48% of meal remaining in thestomach at 4 hours. > Dictated by Mahdi Vicenta Russell Dr (General Accountant) 52:28 PM Allan Snowden MD have personally reviewed and interpreted this examination/study. > Interpreting Provider: Allan Somers MD on 03/24/2025 10:17 AM Radha Wright CEMENTER HAND-CAGE TENDER NM ORDERABLES Final Result * CULTURE STOOL PANEL (01/13/2025 12:16 PM CDT) Salmonella/Shigel la Screen Final report [facility] INSURANCE BILL Campylobacter Culture Final report [facility] INSURANCE BILL E coli Shiga Toxin EIA Negative Negative [facility] INSURANCE BILL Comment: Performed at: [address] [place] [id number] Partner Alliance Manager: Marin Yeh PhD, Phone: [phone] Result 1 Comment [facility] INSURANCE BILL Comment: No Salmonella or Shigella recovered. Performed at: - [address] [id number] Partner Alliance Manager: Marin Yeh PhD, Phone: [phone] Result 1 Comment [facility] INSURANCE BILL Comment:No Campylobacter spe cies isolated. 01/13/2025 12:1 6 PM CDT 01/13/2025 Comment: Narrative [facility] INSURANCE BILL - 01/18/2025 5:09 PM CDT Performed at: [address] [place] [id number] Partner Alliance Manager: Marin Yeh PhD, Phone: [phone] us Alondra Johansen APRN-CAGE TENDER LAB - MICROBIOLOGY ORDER ISHA Final Result Performing Organization Address City/[facility] Co de Phone Number [facility] INSURANCE BILL [address] [place] [address] * OCCULT BLOOD FECES FIT IMMUNOASSAY (01/13/2025 10:00 AM CDT) Occult Blood Immunoassay Negative Negative [facility] INSURANCE BILL Stool STOOL SPECIMEN / Unknown 01/13/2025 10:00 AM CDT 01/13/2025 Comment:ST Narrative [facility] INSURANCE BILL - 01/14/2025 1:09 PM CDT Performed at: [address] [place] [id number] Partner Alliance Manager: Marin Yeh PhD, Phone: [phone] us Alondra Johansen CEMENTER HAND-CAGE TENDER LAB - BODY FLUID ORDERAB LES Final Result Performing Organization Address City/[facility]/ZIP Co de Phone Number [facility] INSURANCE BILL [address] [place] [address] * HIV-1 HIV-2 ANTIBODY + HIV P24 AG PANEL (01/12/2025 12:05 PM CDT) [facility] HIV Screen 4th Generation w Reflex Non Reactive Non Reactive [facility] INSURANCE BILL Comment: HIV-1/HIV-2 antibodies and HIV-1 p24 antigen were NOT detected. There is no laboratory evidence of HIV infection. HIV Negative Blood BLOOD SPECIMEN / Unknown 01/12/2025 12:05 PM CDT 01/12/2025 Narrative [facility] INSURANCE BILL - 01/13/2025 8:11 AM CDT Performed at: [address] [place] [id number] Partner Alliance Manager: Marin Yeh PhD, Phone: [phone] Alondra Johansen APRN-[facility] LAB - CHEMISTRY ORDERABL ES Final Result Performing Organization Address [facility] de Phone Number [facility] INSURANCE BILL [address] [place] [address] * TSH HI LOW REFLEX FREE T4 (01/12/2025 12:05 PM CDT) [facility] TSH 0.994 0.450 - 4.500 uIU/mL [facility] INSURANCE BILL Blood BLOOD SPECIMEN / Unknown 01/12/2025 12:05 PM CDT 01/12/2025 Narrative [facility] INSURANCE BILL - 01/13/2025 9:10 AM CDT Performed at: [address] [place] [id number] Partner Alliance Manager: Marin Yeh PhD, Phone: [phone] Alondra Johansen APRN-[facility] LAB - CHEMISTRY ORDERABL ES Final Result Performing Organization Address [facility] Co de Phone Number [facility] INSURANCE BILL [address] [place] [address] * CHLAMYDIA + GC AMPLIFIED PROBE (01/12/2025 12:05 PM CDT) Chlamydia JUANCHO Urine Negative Negative [facility] INSURANCE BILL GC JUANCHO Urine Negative Negative [facility] INSURANCE BILL Microbiology URINE / Unknown 01/12/2025 1 2:05 PM CDT 01/12/2025 Comment:UR Narrative [facility] INSURANCE BILL - 01/14/2025 6:09 AM CDT Performed at: [address] [id number] Partner Alliance Manager: Danni Catherine MD, Phone: [phone] Alondra Johansen CEMENTER HAND-CAGE TENDER LAB - MICROBIOLOGY ORDER ISHA Final Result Performing Organization Address City/[facility]/ZIP Co de Phone Number [facility] INSURANCE BILL [address] [place] [address] * HEPATITIS C ANTIBODY (01/12/2025 12:05 PM CDT) Pathologist [facility] Hepatitis C Antibody Non Reactive Non Reactive [facility] INSURANCE BILL Comment: HCV antibody alone does not differentiate between previously resolved infection and active infection. Equivocal and Reactive HCV antibody results should be followed up with an HCV RNA test to support the diagnosis of active HCV infection. Blood BLOOD SPECIMEN / Unknown 01/12/2025 12:05 PM CDT 01/12/2025 Narrative [facility] INSURANCE BILL - 01/13/2025 8:11 AM CDT Performed at: [address] [id number] Partner Alliance Manager: Marin Yeh PhD, Phone: [phone] Alondra Johansen CEMENTER HAND-CAGE TENDER LAB - CHEMISTRY ORDERABL ES Final Result Performing Organization Address City/[facility]/ZIP Co de Phone Number [facility] INSURANCE BILL [address] [place] [address] from Last 3 Months Insurance [facility] Care Teams Board Mixer Tender Relationship Specialty Start Date End Date Anali Ballesteros MD [address] [place] [phone] PCP - General Internal Medicine 12/11/24
--- OUTSIDE RECORDS SUMMARY | 2025-04-09 11:14 | XMS_ITS | Encounter Summary ---
Author Organization [facility] Address [address] [place] [address] Care Team Providers Care Mannequin Wig Maker Name Role Phone Anali Ballesteros MD Primary Care Provider Encounter Details Date Type Department Care Team (Late st Contact Info) Description 03/29/2025 Results Follow-Up [facility] - [place] [address] [facility], [facility] [address] Radha Wright, TEMPERATURE LOGGING OPERATOR-PENSION EXAMINER [address] [place] [phone] Social History Tobacco Use Types Packs/Day Years Used Date Smoking Tobacco: Never Smokeless Tobacco: Never Alcohol Use Standard Drinks/Week Comments Not Currently 0 (1 standard drink = 0.6 oz pur e alcohol) PHQ-2 Answer Date Recorded Patient Health Questionnaire-2 Score 2 03/12/2025 Comments No Sex and Gender Information Value Date Recorded Sex Assigned at Not on file Legal Sex Female 10:31 AM RIGGER UP Gender Identity Not on file Sexual Orientation Not on file documented as of this encounter Plan of Treatment Upcoming Encounters Date Type Department Care Team (Latest Contact Info) Description 04/23/2025 9:00 AM CDT Hospital Encounter [facility] [address] [place] [phone] 927 Surgery General 04/23/2025 9:00 AM CDT - 04/23/2025 9:30 AM CDT Surgery [facility] END[facility]COPY [address] [place] [address] Procedure, Nursing G_I BREATH HYDROGEN/METHANE TEST 07/12/2025 10:00 AM RIGGER UP Office Visit [facility] - [place] [address] [facility], [place] [address] Radha Wright, TEMPERATURE LOGGING OPERATOR-PENSION EXAMINER [address] [place] [address] 12/14/2025 9:00 AM CDT Office Visit [facility] - Family Medicine [address] [facility], [facility] [address] [place] [address] Alondra Johansen, TEMPERATURE LOGGING OPERATOR-PENSION EXAMINER [address] [facility] [address] [place] [address] Scheduled Procedures Name Priority Associated Diagnoses Date/Ti me BREATH HYDROGEN/METHANE TEST Nausea Abdominal cramping Diarrhea, unspecified type 04/23/2025 9:00 AM CDT documented as of this encounter Goals Goal Patient Goal Type Associated Problems Recent Progress Patient-Stated? Author Medication Management General On track( 025 9:26 AM CDT) No Artem Paniagua, RN Note: Expected end date: ongoing Interventions: Take all medications as prescribed Let your doctor know right away about any changes in your medications Make sure to request a refill of your medication at least one week prior to your last dose documented as of this encounter Visit Diagnoses Not on filedocumented in this encounter Care Teams Mannequin Wig Maker Relationship Specialty Start Date End Date Anali Ballesteros MD [address] [facility] [place] [address] PCP - General Internal Medicine 12/11/24 documented as of this encounter
[2025-04-09 11:21] VITALS: BP 101/63; PULSE 69; RESP 18; TEMP 36.3; O2SAT 100
--- NOTE | 2025-04-09 11:21 | ED_ITS ---
HPI - Female Genitourinary General Chief complaint: Urogenital-Female Stated complaint: UTI Time Seen by Provider: 04/09/25 11:15 Source: patient Mode of arrival: ambulatory Limitations: no limitations History of Present Illness HPI Narrative: Patient is a 24-year-old female who presents with frequency, urgency and itching for 3 days. Denies any fever, chills, nausea, vomiting, diarrhea. Denies any low back pain, blood in urine or concern for STI. Patient's menstrual cycle. Three days ago and has had some irritation from tampon use. Reports history of UTI and it feels the same. MD elicited complaint: dysuria Related Data Home Medications ?Medication ?Instructions ?Recorded ?Confirmed ?Last Taken ?Type dicyclomine 10 mg capsule mg 04/09/25 Unknown History metoclopramide HCl 5 mg tablet mg 04/09/25 Unknown History omeprazole 40 mg capsule,delayed mg 04/09/25 Unknown History release Allergies Allergy/AdvReac Type Severity Reaction Status Date / Time No Known Allergies Allergy Unknown Verified 04/09/25 11:14 Review of Systems Review of Systems: All systems reviewed & are unremarkable except as noted in HPI and below Constitutional: Constitutional: Denies chills, Denies fever(s), Denies headache(s), Denies malaise and Denies weakness Eyes: Eyes: Denies change in vision, Denies eye discharge and Denies irritation ENT: Denies otalgia, Denies headache(s), Denies nasal congestion, Denies nasal discharge, Denies sinus pain and Denies sore throat Cardiovascular: Cardiovascular: Denies chest pain, Denies edema, Denies palpitations and Denies dyspnea Respiratory: Respiratory: Denies cough and Denies dyspnea Gastrointestinal: Gastrointestinal: Denies abdominal pain, Denies diarrhea, De nies nausea and Denies vomiting Genitourinary: Genitourinary: Denies hematuria, Reports nocturia, Denies dysuria, Denies flank pain and Reports urinary urgency Musculoskeletal: Musculoskeletal: Denies back pain and Denies numbness Integumentary/Breasts: Skin/Breast: Denies pruritus and Denies rash Neurologic: Denies headache(s), Denies numbness and Denies weakness Psychiatric: Psychiatric: Reports no additional psychiatric complaints Endocrine: Endocrine: Denies palpitations PMFSH Comments At time of signature, agree with nursing past medical, surgical, social and family history. There is no relevant family history pertinent to the presenting complaint. Exam Const: General: cooperative, healthy appearing, comfortable, no acute distress and well nourished Nutritional Appearance: well nourished Orientation/consciousness: patient oriented x3 HENMT: Head: normocephalic and atraumatic Ears: external ears normal Face/Nose/Sinus: Normal external nose present, Normal nares present and normal facial exam Face and sinus: normal facial exam Eyes: General: appearance normal, both eyes and all related structures Pupils: Equal, round and reactive pupils present EOM: EOMs intact bilaterally Neck: Neck: normal visual inspection, full ROM and supple Chest: Chest palpation & inspection: normal inspection of the chest Resp: Effort & Inspection: normal respiratory effort and able to speak in complete sentences Cardio: Rate: regular rate Rhythm: regular rhythm GI: Inspection: normal to inspection GI Palp: No abdominal tenderness and Yes Soft to palpation : General: Yes no CVA tenderness Back/Spine/Pelvis: Back: no CVA tenderness Skin: General skin exam: normal color and no rashes or lesions noted Neuro: General: patient oriented x3 and moves all extremities Cranial nerves: Yes Equal, round and reactive pupils present Extrem: General: normal to inspection and full ROM Psych: Appearance: grossly normal and well kempt Course Course Emergency Course: Patient is aware of diagnosis, understands and agrees to treatment plan. Anticipatory guidance given. Patient agrees to follow-up as directed and is aware of reasons to seek care at the emergency department. Portions of this record may have been created with voice recognition software Level of Care: Express Care Visit Vital Signs Vital signs: Vital Signs Temperature 36.3 C L 04/09/25 11:21 Pulse Rate 69 04/09/25 11:21 Respiratory Rate 18 04/09/25 11:21 Blood Pressure 101/63 04/09/25 11:21 Pulse Oximetry 100 04/09/25 11:21 Oxygen Delivery Room Air 04/09/25 11:21 Temperature 36.3 C L 04/09/25 11:21 Pulse Rate 69 04/09/25 11:21 Respiratory Rate 18 04/09/25 11:21 Blood Pressure 101/63 04/09/25 11:21 Pulse Oximetry 100 04/09/25 11:21 Oxygen Delivery Room Air 04/09/25 11:21 Reviewed MDM - Female Genitourinary MDM Narrative Medical decision making narrative: Exam findings and UA show probable UTI, patient reports home test kit showed positive leuks. Visual read of UA were positive for leuks today; patient is non-toxic appearing and is in no distress. No CMT, adnexal tenderness, or evidence of pelvic etiology. Patient is appropriate for outpatient treatment and follow-up. Differential Diagnosis Differential diagnosis: Likely urinary tract infection, bacterial vaginosis, trichomoniasis, cervicitis, vaginitis and cystitis Medical Records Attestation: I reviewed the patient's medical records. Lab Data Attestation: I reviewed the patient's lab results. Labs: Lab Results 04/09/25 Range/Units 11:28 POC Urine Color Yellow POC Urine Clarity Clear POC Urine pH 7.0 POC Ur Specif [place] 1.015 POC Urine Protein Negative (Negative) POC Ur Glucose (UA) Negative (Negative) POC Urine Ketones Negative (Negative) POC Urine Blood Trace (Negative) POC Urine Nitrite Negative (Negative) POC Urine Bilirubin Negative (Negative) POC Urine Urobilinogen 0.2 POC U Leukocyte Esteras Negative (Negative) Discharge Plan Discharge Clinical Impression: Urinary tract infection Qualifiers: Urinary tract infection type: acute cystitis Hematuria presence: without hematuria Qualified Code(s): N30.00 - Acute cystitis without hematuria Patient Disposition: Home Condition: Stable Instructions: Urinary Tract Infection in Women (ED) Additional Instructions: We will send a urine culture to the lab, based on your symptoms and urine dip we will start treatment today. If culture comes back and bacteria is not susceptible to antibiotic, your prescription may change. Your symptoms should improve within a day of starting antibiotics, but you should finish all the antibiotic pills you get. Otherwise your infection might come back Continue with increased water intake. Take Tylenol or ibuprofen as needed for pain or fever. Follow-up with primary care provider for urine recheck or see ER visit if condition worsens with high fever, nausea, vomiting, severe back pain Patient Language: Greenlandic Prescriptions: New sulfamethoxazole-trimethoprim 800-160 mg tablet 1 tablet PO Q12H 5 Days Qty: 10 0RF No Action omeprazole 40 mg capsule,delayed release(DR/EC) metoclopramide HCl 5 mg tablet dicyclomine 10 mg capsule Follow-up/Referrals: GE PALAFOX,ABDIRAHMAN Nevarez M.D. [Primary Care Provider] - 3 Days Time of Disposition: 11:48
[2025-04-09 11:30] LABS: EDUAAPPEAR Clear; EDUABILI Negative (Negative); EDUABLOOD Trace (Negative); EDUACOLOR1 Yellow; EDUAGLUCOSE Negative (Negative); EDUAKETONE Negative (Negative); EDUALEUKO Negative (Negative); EDUANITRATE Negative (Negative); EDUAPH 7.0; EDUAPROTEIN Negative (Negative); EDUASPGRAVITY 1.015; EDUAUROBILI 0.2
== END 2025-04-09 11:50 | disposition home or self-care (01) ==
PROVIDERS: Emergency Provider Nurse Practitioner Family; PCP Internal Medicine
DX: N30.00 Acute cystitis without hematuria (principal); K21.9 Gastro-esophageal reflux disease without esophagitis; K31.84 Gastroparesis
CPT/HCPCS: 81003; 87086; 99213; G0463

== ENCOUNTER 2025-04-16 11:43 | Emergency (ER) | payer OTHER, SELFPAY ==
--- OUTSIDE RECORDS SUMMARY | 2025-04-16 11:45 | XMS_ITS | Encounter Summary ---
Author Organization [facility] Address [address] [place] [address] Care Team Providers Care Hand Alterations Seamstress Name Role Phone Anali Ballesteros MD Primary Care Provider Encounter Details Date Type Department Care Team (Late st Contact Info) Description 03/29/2025 Results Follow-Up [facility] - [place] [address] [facility], [facility] [place] [address] Radha Wright, ON SITE SOIL EVALUATOR-TIMBER CUTTER [address] [place] [phone] Social History Tobacco Use Types Packs/Day Years Used Date Smoking Tobacco: Never Smokeless Tobacco: Never Alcohol Use Standard Drinks/Week Comments Not Currently 0 (1 standard drink = 0.6 oz pur e alcohol) PHQ-2 Answer Date Recorded Patient Health Questionnaire-2 Score 2 03/12/2025 Comments No Sex and Gender Information Value Date Recorded Sex Assigned at Not on file Legal Sex Female 10:31 AM MATERIALS CLERK Gender Identity Not on file Sexual Orientation Not on file documented as of this encounter Plan of Treatment Upcoming Encounters Date Type Department Care Team (Latest Contact Info) Description 04/23/2025 9:00 AM CDT Hospital Encounter [facility] [address] [place] [phone] 997 Surgery General 04/23/2025 9:00 AM CDT - 04/23/2025 9:30 AM CDT Surgery [facility] [address] [place] [address] Procedure, Nursing G_I BREATH HYDROGEN/METHANE TEST 07/12/2025 10:00 AM MATERIALS CLERK Office Visit [facility] - GI [address] [facility] [place] [address] Radha Wright, ON SITE SOIL EVALUATOR-TIMBER CUTTER [address] [place] [address] 12/14/2025 9:00 AM CDT Office Visit [facility] - Family Medicine [address] [facility], [facility] [address] [place] [address] Alondra Johansen, ON SITE SOIL EVALUATOR-TIMBER CUTTER [address] [facility] [address] [place] [address] Scheduled Procedures Name Priority Associated [...] on filedocumented in this encounter Care Teams Hand Alterations Seamstress Relationship Specialty Start Date End Date Anali Ballesteros MD [address] [facility] [place] [address] PCP - General Internal Medicine 12/11/24 documented as of this encounter
--- OUTSIDE RECORDS SUMMARY | 2025-04-16 11:45 | XMS_ITS | Clinical Summary ---
Author Organization [facility] Address [address] [place] [address] Care Team Providers Care Implant Coordinator Name Role Phone Christopher Villegas Primary Care Provi quirino Glenn Terrell MD Unavailable [phone] Allergies No known active allergies Medications SUMAtriptan [...] (05/18/2020): Added automatically from request for surgery [id number] Subluxation of left patella 11/05/2019 Overview (11/05/2019): Added automatically from request for surgery [id number] Patellar instability of left knee 11/05/2019 Overview (11/05/2019): Added automatically from request for surgery [id number] Patellofemoral pain syndrome of left knee 2018 [...] this school year Imaging: MRI brain-normal at [facility] on 08/09/2016 Sleep: About 8 hours [...] 11/05/2019 Added automatically from request for surgery [id number] Subluxation of left patella 11/05/2019 Adde d automatically from request for surgery [id number] Patellar subluxation, left, initial encounter 05/21/2019 Migraines [...] on file Legal Sex Female 6:04 AM WINDOW COVERING SALES CONSULTANT Gender Identity Not on file Sexual Orientation [...] on file Medical Devices Implanted Type Area Test Conductor Device Identifier Shelf Expiration Date Model / Serial / Lot [employer] [id number] Screw Interference Biosure Car L20 Mm Od6 Mm Acl Pcl Versatility Graft Fixation - [id number] Implanted:Qty: 1 on 01/18/2020 by Glenn Terrell MD at [facility] Left: Knee [employer] 04/22/2024 [id number] / / [id number] [employer] [id number] Q-Fix 2.8mm [place] Suture - [id number] Implanted:Qty: 1 on 01/18/2020 by Glenn Terrell MD at [facility] Left: Knee [employer] 05/20/2022 25-2800 / / [id number] [employer] 25-2800 Q-Fix 2.8mm [place] Suture - [id number] Implanted:Qty: 1 on 01/18/2020 by Glenn Terrell MD at [facility] Left: Knee [employer] 05/20/2022 25-2800 / / [place] [facility] [id number] Allograft Frozen Irradiate Graft Soft Tissue Semitendinosus - [id number] Implanted:Qty: 1 on 01/18/2020 by Glenn Terrell MD at [facility] Left: Knee [employer] 04/04/2023 [id number] / / [id number] Insurance [facility]S [facility] Advance Directives For more information, please contact: [phone] Documents on File Type Date Recorded Patient Welder 2Nd Shift Expl anation ADVANCE DIRECTIVE 12/14/2020 2:44 PM ADVANCE DIRECTIVE 05/18/2020 10:59 AM ADVANCE DIRECTIVE 01/18/2020 11:21 AM * Full Code (Latest Code Status on File) Date Activated Date Inactivated Comments 02/28/2018 8:32 AM 02/28/2018 11:17 AM Care Teams Implant Coordinator Relationship Specialty Start Date End Date Christopher Villegas DO PCP - General Pediatrics 05/13/19 Glenn Terrell MD [address] [address] Surgeon Pediatric Orthopedic Surgery 01/18/20
--- OUTSIDE RECORDS SUMMARY | 2025-04-16 11:46 | XMS_ITS | Encounter Summary ---
Author Organization [facility] Address [address] [place] [address] Care Team Providers Care Embroiderer Name Role Phone None, Provider Unavailable Unavailable Christopher Villegas MD Primary Care Provider [phone] None, Provider Primary Care Provider Unavaila ble Encounter Details Date Type Department Care Team (Late st Contact Info) Description 05/02/2020 Prep for Procedure [facility] [address] [place], [place] [id number] Stephen Tomlinson MD [address] [address] Social History Tobacco Use Types Packs/Day Years [...] DETECTED NOT DETECTED 05/04/2020 5:01 PM CDT [facility] Comment: A Not Detected (negative) test result [...] providers and patients using the following websites: https://[email or web address]/[email or web address]/[email or web address]/fact-sheet2 https://[email or web address]/[email or web address]/Covid-[email or web address]/Patients/NAAT/ fact-sheet2 This test has been authorized by the FDA under an Emergency Use Authorization (EUA) for use by authorized laboratories. Due to the current public health emergency, [facility] is receiving a high volume of samples [...] about COVID-19 can be found at the [facility] website: www.My[facility].Attero/Covid19. Test performed at [facility] [place] [address] [place] [address] Director: MATI FLORIAN DO,MPH NASOPHARYNGEAL SWAB / Unknown 05/03/2020 2:57 PM CDT us Stephen Tomlinson MD MICROBIOLOGY - GENERAL ORDERABLE S Final Result [facility] [address] [place] [address], documented in this encounter Visit Diagnoses Diagnosis Preop testing- Primary Preoperative examination, unspecified documented in this encounter Additional Health Concerns Infection Onset Date Last Indicated Resolved Time COVID-19 Rule Out 05/03/2020 05/03/2020 05/04/2020 5:01 PM CDT COVID-19 Rule Out 01/18/2021 01/18/2021 01/20/2021 2:25 PM CDT COVID-19 Rule Out 08/18/2021 08/18/2021 08/19/2021 7:56 AM CASING CREW COVID-19 Rule Out 03/13/2022 03/13/2022 03/14/2022 6:47 PM CDT COVID-19 Rule Out 08/05/2022 08/05/2022 08/05/2022 12:26 PM CASING CREW COVID-19 Rule Out 10/09/2022 10/09/2022 10/09/2022 2:47 AM CASING CREW COVID-19 Rule Out 10/26/2022 10/26/2022 10/26/2022 1:16 AM CASING CREW COVID-19 Rule Out 08/07/2023 08/07/2023 08/07/2023 12:52 AM CASING CREW COVID-19 Rule Out 10/14/2023 10/14/2023 10/14/2023 2:23 PM CASING CREW documented as of this encounter Care Teams Embroiderer Relationship Specialty Start Date End Date Christopher Villegas MD [address] [place] [phone] PCP - General 05/27/19 07/06/24 None, Provider, PCP - General UNKNOWN PHYSICIAN SPECIALTY 07/07/24 None, ProviderMD 03/25/19 documented as of this encounter
--- OUTSIDE RECORDS SUMMARY | 2025-04-16 11:46 | XMS_ITS | Clinical Summary ---
Author Organization [facility] [place] Address [address] [place] [address] Care Team Providers Care Lace Sewer Name Role Phone Anali Ballesteros MD Primary Care Provider Source Comments [facility],non-owned Affiliates and Associated Physician Practices is amultiple site organization consisting of ambulatory clinics and hospital sitesin [place], [place], [place] and [place]. This disclosure is being madepursuant to the Care Everywhere program and may not contain all information available regarding this patient. Last updated 18.[facility] [place] Allergies No known active allergies Medications * Be aware that medications may not be up to date on this document. Alwaysverify current medications with the patient. dicyclomine (Bentyl) 10 MG capsule Take 1 [...] daily before meals 90 tablet 5 Active omeprazole (PriLOSEC) 40 MG capsule Take 1 (one) capsule by mouth once daily 100 capsule 1 5 Active omeprazole (PriLOSEC) 40 MG capsule Take 1 (one) capsule by mouth once daily 90 capsule 5 04/14/20 25 Discontinu ed(Reorder ) Active Problems Problem [...] this school year Imaging: MRI brain-normal at [facility] on 08/09/2016 Sleep: About 8 hours [...] needed Assessment & Plan (10/18/2016 2:56 PM GENETICS NURSE): Additional workup: Recommended eye exam Keep Headache [...] (12/10/2024): Added automatically from request for surgery [id number] Patellar instability of left knee 11/05/2019 12/11/2024 Overview (12/10/2024): Added automatically from request for surgery [id number] Patellofemoral pain syndrome of left knee 05/21/2019 12/11/2024 Subcutaneous cyst 01/23/2018 12/11/2024 Closed fracture of distal ph alanx or phalanges of hand 05/26/2010 12/11/2024 Encounters Date Type Department Care Team Description 04/14/2025 Refill [facility] [address] [facility], [facility] [address] [place] [address] Alondra Johansen APRN-CNP MEDICATION REFILL 03/29/2025 Orders Only [facility] - GI [address] [place] [phone] Radha Wright APRN-CNP Gastroparesis 03/29/2025 Results Follow-Up [facility] - GI [address] [place] [phone] Radha Wright APRN-CNP 03/23/2025 10:08 AM CDT - 03/23/2025 11:59 PM CDT Hospital Encounter [facility]AR [facility] [address] [place] [phone] Radha Wright APRN-CNP Discharge Disposition: Home or Self Care 03/23/2025 8:57 AM CDT - 03/23/2025 10:07 AM CDT Hospital Encounter [facility] MED[facility] [address] [place] [phone] Radha Wright APRN-CNP Discharge Disposition: Home or Self Care 03/23/2025 Travel 03/12/2025 9:00 AM CDT Office Visit [facility] [address] [facility], [facility] [address] [place] [phone] Alondra Johansen APRN-CNP Nausea without vomiting (Primary Dx); Diarrhea, unspecified type; Abdominal cramping; Acute on chronic pain of left knee 03/12/2025 Travel 03/10/2025 9:30 AM CDT Office Visit [facility] - GI [address] [place] [phone] Alisia Sosa MD Coke-Attewell, Michelle, APRN-CNP Nausea without vomiting (Primary Dx); Abdominal cramping; Diarrhea, unspecified type 03/10/2025 Telephone [facility] ENDOSCOPY [address] [place] [phone] Artem Miller, RN Scheduling Outreach (Hydrogen/Methane Breath Test scheduling attempt x1/) 03/10/2025 Travel 01/20/2025 Results Follow-Up [facility] - Family Medicine [address] [facility], [address] [phone] Alondra Johansen APRN-CNP from Last 3 Months Immunizations Immunization Administration [...] on file Legal Sex Female 10:31 AM GENETICS NURSE Gender Identity Not on file Sexual Orientation [...] Description 04/23/2025 9:00 AM CDT Hospital Encounter [facility] [address] [place] [address] Surgery General 04/23/2025 9:00 AM CDT - 04/23/2025 9:30 AM CDT Surgery [facility] [address] [place] [address] Procedure, Nursing G_I BREATH HYDROGEN/METHANE TEST 07/12/2025 10:00 AM GENETICS NURSE Office Visit [facility] - GI [address] [facility] [place] [address] Radha Wright, COMPUTER TECHNICAL SPECIALIST-ROLL RECLAIMER [address] [place] [phone] 12/14/2025 9:00 AM CDT Office Visit [facility] - Family Medicine [address], [place] [address] [place] [address] Alondra Johansen, COMPUTER TECHNICAL SPECIALIST-ROLL RECLAIMER [address] [place] [address] [place] [address] Scheduled Procedures Name Priority Associated Diagnoses Date/Ti me BREATH HYDROGEN/METHANE TEST Nausea Abdominal cramping Diarrhea, unspecified type 04/23/2025 9:00 AM CDT Health Maintenance Due Date Last Done Comments HPV VACCINE (1 - 3-dose series) 2016 MENINGOCOCCAL (Group B) VACCINE SHARED DECISION-MAKING (1 of 2 - Standard) 2017 COVID-19 VACCINE ( season) 2024 02/03/2021, 02/02/2021, 01/31/2021, Additional history exists INFLUENZA VACCINE (#1) 2025 10/16/2017 CHLAMYDIA/GONORRHEA SCREENING 01/12/2026 01/12/2025 DTAP/TDAP/TD VACCINES (8 - Td or Tdap) 08/20/2033 08/20/2023, 01/29/2013, 05/15/2006, Additional history exists ZOSTER VACCINE (1 of 2) 2051 HEPATITIS B VACCINE Completed 2002, 2001, 2001 HIB VACCINE Completed 2002, 10/31, 2001 PNEUMOCOCCAL VACCINE Aged Out 05/04/2003, 08/29/20 No longer eligible based on patient's age to complete this topic MENINGOCOCCAL GROUPS A/C/Y/W VACCINE Completed 10/16/2017, 01/29/2013 DEPRESSION SCREENING Completed 12/11/2024 HEPATITIS C SCREENING Completed 01/12/2025, 024 HIV SCREENING Completed 01/12/2025 Goals Goal Patient Goal Type Associated Problems Recent Progress Patient-Stated? Author Medication Management General On track( 025 9:26 AM CDT) Artem Matthews RN Note: Expected end date: ongoing Interventions: [...] without vomiting Abdominal cramping Diarrhea, unspecified type HEPATITIS C ANTIBODY Routine 01/12/2025 12:05 PM CDT Screen for STD (sexually transmitted disease) CHLAMYDIA + GC AMPLIFIED PROBE Routine 01/12/2025 12:05 PM CDT Screen for STD (sexually transmitted disease) HIV-1 HIV-2 ANTIBODY + HIV P24 AG PANEL Routine 01/12/2025 12:05 PM CDT Screen for STD (sexually transmitted disease) from Last 3 Months or Most Recently Relevant to Health Maintenance Results * NM Gastric Emptying (03/23/2025 3:17 PM CDT) Anatomical Region Laterality Modality Abdomen Nuclear Medicine 03/23/2025 2:28 PM CDT Impressions 03/24/2025 10:17 AM CDT IMPRESSION: 1.Grade 3 -severe gastroparesis- with 48% of meal remaining in the stomach at 4 hours. > Dictated by Mahdi Vicenta Russell Dr (Assistant Brand Manager) 03/23/2025 2:28 PM IAllan MD have personally [...] in the stomach at zepeda time points after ingestion was: 80.2% @ [...] > Dictated by Mahdi Vicenta Russell Dr (Assistant Brand Manager) 52:28 PM I, Allan Somers MD have personally reviewed and interpreted this examination/study. > Interpreting Provider: Allan Somers MD on 03/24/2025 10:17 AM us Radha Wright COMPUTER TECHNICAL SPECIALIST-ROLL RECLAIMER NM ORDERABLES Final Result * HIV-1 HIV-2 ANTIBODY + HIV P24 AG PANEL (01/12/2025 12:05 PM CDT) [facility] HIV Screen 4th Generation w Reflex Non Reactive Non Reactive [facility] INSURANCE BILL Comment: HIV-1/HIV-2 antibodies and HIV-1 p24 antigen were NOT detected. There is no laboratory evidence of HIV infection. HIV Negative Blood BLOOD SPECIMEN / Unknown 01/12/2025 12:05 PM CDT 01/12/2025 Narrative [facility] INSURANCE BILL - 01/13/2025 8:11 AM CDT Performed at: [address] [place] [id number] Marketing Manager: Marin Yeh PhD, Phone: [phone] us Alondra Johansen COMPUTER TECHNICAL SPECIALIST-ROLL RECLAIMER LAB - CHEMISTRY ORDERABL ES Final Result [facility] INSURANCE BILL [address] [place] [address] * CHLAMYDIA + GC AMPLIFIED PROBE (01/12/2025 12:05 PM CDT) Pathologist [facility] Chlamydia JUANCHO Urine Negative Negative [facility] INSURANCE BILL GC JUANCHO Urine Negative Negative [facility] INSURANCE BILL Microbiology URINE / Unknown 01/12/2025 1 2:05 PM CDT 01/12/2025 Comment:UR Narrative [facility] INSURANCE BILL - 01/14/2025 6:09 AM CDT Performed at: [address] [id number] Marketing Manager: Danni Catherine MD, Phone: [phone] Alondra Johansen APRN-ROLL RECLAIMER LAB - MICROBIOLOGY ORDER ISHA Final Result Performing Organization Address [facility] Co de Phone Number [facility] INSURANCE BILL [address] [place] [address] * HEPATITIS C ANTIBODY (01/12/2025 12:05 PM CDT) [facility] Hepatitis C Antibody Non Reactive Non Reactive [...] - 01/13/2025 8:11 AM CDT Performed at: [address] [id number] Marketing Manager: Marin Yeh PhD, Phone: [phone] Alondra Johansen APRN-ROLL RECLAIMER LAB - CHEMISTRY ORDERABL ES Final Result Performing Organization Address [facility] Co de Phone Number [facility] INSURANCE BILL [address] [place] [address] from Last 3 Months or Most Recently Relevant to Health Maintenance Insurance [facility] Care Teams Lace Sewer Relationship Specialty Start Date End Date Anali Ballesteros MD [address] [place] [address] PCP - General Internal Medicine 12/11/24
--- OUTSIDE RECORDS SUMMARY | 2025-04-16 11:46 | XMS_ITS | Clinical Summary ---
Author Organization [facility] Address [address] [place] [address] Care Team Providers Care Gas Furnace Installer Name Role Phone None, Provider MD Unavailable [...] Diabetic eye exam ([facility]) 09/10/2024 Follow-up examination 09/10/2024 Overview (09/10/2024): Discussed [...] (04/28/2020): Added automatically from request for surgery [id number] Patellofemoral pain syndrome of left knee 2018 Subluxation of patellofemoral joint 05/21/2019 Overview (04/28/2020): Added automatically from request for surgery [id number] Subcutaneous cyst 01/23/2018 Migraine without aura and [...] this school year Imaging: MRI brain-normal at [facility] on 08/09/2016 Sleep: About 8 hours [...] 09/14/2024 Crohn's disease ([facility]) 05/02/2020 07/12/2024 Overview (05/02/2020): Added automatically from request for surgery [id number] Encounters Date Type Department Care Team Description [...] social - 130 days as of 07/07/2024 [facility] Utilities Answer Date Recorded In the past 12 months has e [employer], gas, oil, or water [employer] threatened to shut off services in your [...] any time in the past 12 m [facility], were you homeless or living in a fci (including now)? No 07/08/2024 Comments No Sex and Gender Information Value Date Recorded Sex Assigned at Not on file Legal Sex Female 7:18 PM CDT Gender Identity Not on file Sexual Orientation Not on file Last Filed Vital Signs Vital Sign Reading Time Taken Comments Blood Pressure 103/64 09/10/2024 1:14 PM SENIOR QUALITY TECHNICIAN Pulse 79 09/10/2024 1:14 PM SENIOR QUALITY TECHNICIAN Temperature 36.3 C (97.3 F) 09/10/2024 1:14 PM SENIOR QUALITY TECHNICIAN Respiratory Rate 20 09/10/2024 1:14 PM SENIOR QUALITY TECHNICIAN Oxygen Saturation 99% 09/10/2024 1:14 PM SENIOR QUALITY TECHNICIAN Inhaled Oxygen Concentration - - Weight 69.9 kg (154 lb) 09/10/2024 1:14 PM SENIOR QUALITY TECHNICIAN Height 167.6 cm (5' 6) 09/10/2024 1:14 PM SENIOR QUALITY TECHNICIAN Body Mass Index 24.86 09/10/2024 1:14 PM SENIOR QUALITY TECHNICIAN Plan of Treatment Health Maintenance Due Date [...] Meningococcal Vaccine Completed 10/16/2017, 013 PHQ-2 (Physician [facility]) Completed 09/10/2024 Hepatitis C Completed 01/12/2025, 07/08/2024 RSV Immunizations Under 20 Months Aged Out No longer eligible based on patient's age to complete this topic Goals Goal Patient Goal Type Associated Problems Recent Progress Patient-Stated? Author Health - patient able to perform ADLs independently Lifestyle No Ada person, Jamaal Munguia english professor Procedure Name Priority Date/Time Associated Diagnosis Comments HEPATITIS PANEL,ACUTE Routine 07/08/2024 1:38 PM SENIOR QUALITY TECHNICIAN from Last 3 Months or Most Recently Relevant to Health Maintenance Results * HEPATITIS PANEL,ACUTE (07/08/2024 1:38 PM SENIOR QUALITY TECHNICIAN) HEPATITIS B SURFACE AG NON-REACTI VE NON-REACTI VE 07/09/2024 3:43 AM SENIOR QUALITY TECHNICIAN [facility] HEP B CORE IGM NON-REACTI VE NON-REACTI VE 07/09/2024 3:43 AM SENIOR QUALITY TECHNICIAN [facility] HAV IGM NON-REACTI VE NON-REACTI VE 07/09/2024 3:43 AM SENIOR QUALITY TECHNICIAN [facility] HEPATITIS C AB NON-REACTI VE NON-REACTI VE 07/09/2024 3:43 AM SENIOR QUALITY TECHNICIAN [facility] 07/08/2024 1:38 PM SENIOR QUALITY TECHNICIAN Gustavo Isabel Garcia VIDEO COORDINATOR LABORATORY Final Result [facility] [address] [place] [address], from Last 3 Months or Most Recently Relevant to Health Maintenance Insurance MEDICAID Advance Directives * Full Code (Latest Code Status on File) Date Activated Date Inactivated Comments 07/08/2024 7:08 PM 07/12/2024 2:26 PM * Full Code Date Activated Date Inactivated Comments 07/08/2024 12:30 PM 07/08/2024 7:01 PM Care Teams Gas Furnace Installer Relationship Specialty Start Date End Date None, ProviderMD PCP - General UNKNOWN PHYSICIAN SPECIALTY 07/07/24 None, MD Ana 03/25/19
--- NOTE | 2025-04-16 11:50 | ED_ITS ---
HPI - Female Genitourinary General Chief complaint: Urogenital-Female Stated complaint: uti Time Seen by Provider: 04/16/25 11:51 Source: patient and RN notes reviewed Mode of arrival: ambulatory Limitations: no limitations History of Present Illness HPI Narrative: 24 y/o female presented for c/o occasional burning with urination and frequency over the past few weeks. Pt was seen in clinic 04/09 after home urine test showed leuks, prescribed Bactrim x5days, (culture was negative.) Says she noticed blood tinged toilet paper about 2 days after starting abx, but none since. Denies vomiting, abdominal pain, flank pain, constipation, diarrhea, vaginal discharge, fevers or chills. pt reports a recent dx gastroparesis, and feels abdominal bloating and fullness frequently. Also took fluconazole Rx yesterday. Denies concern for std. Related Data Home Medications ?Medication ?Instructions ?Recorded ?Confirmed ?Last Taken ?Type dicyclomine 10 mg capsule mg 04/09/25 Unknown History metoclopramide HCl 5 mg tablet mg 04/09/25 Unknown History omeprazole 40 mg capsule,delayed mg 04/09/25 Unknown History release Allergies Allergy/AdvReac Type Severity Reaction Status Date / Time No Known Allergies Allergy Unknown Verified 04/09/25 11:14 Review of Systems Review of Systems: CONSTITUTIONAL: Denies body aches, fever, chills, or sweats. CARDIOVASCULAR: Denies chest pain, palpitations, or edema. RESPIRATORY: Denies cough or dyspnea. GASTROINTESTINAL: Denies abdominal pain, nausea, vomiting, or diarrhea. GENITOURINARY: Reports frequency, denies urgency, hematuria, flank pain, discharge SKIN: Denies rash MUSCULOSKELETAL: Denies back pain or myalgia. [facility] Past Medical History Medical History (Updated 04/16/25 @ 12:49 by Kaitlynn Rodriguez APRN) Gastroparesis Surgical History Surgical History (Updated 04/16/25 @ 12:29 by Kaitlynn Rodriguez APRN) History of cholecystectomy Comments At time of signature, I have reviewed and agree with nursing past medical, surgical, social and family history unless otherwise noted. Please see nursing chart for further information. There is no relevant family history pertinent to the presenting complaint Exam Narrative: GENERAL: Well-appearing and in no acute distress. ENT: Mucous membranes pink and moist. NECK: Normal AROM. Supple. CHEST: No respiratory distress. Clear to auscultation. HEART: Regular rate and rhythm. ABDOMEN: Soft, nontender, nondistended, normal active bowel sounds. No CVA tenderness SKIN: Warm, dry, no rash. NEURO: No focal deficits. Alert and oriented x3. Gait steady. PSYCH: Normal affect. Course Course Emergency Course: Patient is aware of diagnosis, understands and agrees to treatment plan. Anticipatory guidance given. Patient agrees to follow-up as directed and is aware of reasons to seek care at the emergency department. Portions of this record may have been created with voice recognition software Level of Care: Express Care Visit Vital Signs Vital signs: Vital Signs Temperature 97.5 F L 04/16/25 11:54 Pulse Rate 73 04/16/25 11:54 Respiratory Rate 18 04/16/25 11:54 Blood Pressure 105/63 04/16/25 11:54 Pulse Oximetry 100 04/16/25 11:54 Oxygen Delivery Room Air 04/16/25 11:54 Temperature 97.5 F L 04/16/25 11:54 Pulse Rate 73 04/16/25 11:54 Respiratory Rate 18 04/16/25 11:54 Blood Pressure 105/63 04/16/25 11:54 Pulse Oximetry 100 04/16/25 11:54 Oxygen Delivery Room Air 04/16/25 11:54 Reviewed MDM - Female Genitourinary MDM Narrative Medical decision making narrative: Urine culture reviewed with pt from 04/09, no UTI. Discussed physical exam findings and todays urine dip. will culture. Advised f/u with pcp. Advised supportive measures and signs/symptoms to go to the ER. Pt is appropriate for outpt treatment and f/u. Differential Diagnosis Differential diagnosis: Likely urinary tract infection, bacterial vaginosis, vag initis and cystitis Discharge Plan Discharge Clinical Impression: Dysuria Patient Disposition: Home Condition: Stable Instructions: Antibiotic Form, Urinary Tract Infection in Women (ED) Additional Instructions: Your urine will be sent of for a culture to determine if bacteria is causing your symptoms. If the culture shows a UTI, you will be notified and an antibiotic will be called in for you. you will need to follow up with your PCP or Obgyn if symptoms persist, call today to schedule follow-up appointment. Go to the ER for any worsening symptoms or concerns. Patient Language: Lithuanian Prescriptions: No Action omeprazole 40 mg capsule,delayed release(DR/EC) metoclopramide HCl 5 mg tablet dicyclomine 10 mg capsule sulfamethoxazole-trimethoprim 800-160 mg tablet 1 tablet PO Q12H 5 Days Qty: 10 0RF fluconazole 150 mg tablet 150 mg PO ONCE Qty: 2 0RF Rx Instructions: as a single dose after antibiotics are complete. If symptoms persist, take second dose 3 days later. Follow-up/Referrals: GE PALAFOX,ABDIRAHMAN Nevarez M.D. [Primary Care Provider] - Time of Disposition: 12:47
[2025-04-16 11:54] VITALS: BP 105/63; PULSE 73; RESP 18; TEMP 36.4; O2SAT 100
[2025-04-16 12:33] LABS: EDUAAPPEAR Clear; EDUABILI Negative (Negative); EDUABLOOD Trace (Negative); EDUACOLOR1 Yellow; EDUAGLUCOSE Negative (Negative); EDUAKETONE Negative (Negative); EDUALEUKO Negative (Negative); EDUANITRATE Negative (Negative); EDUAPH 6.5; EDUAPROTEIN Negative (Negative); EDUASPGRAVITY 1.015; EDUAUROBILI 0.2
== END 2025-04-16 12:51 | disposition home or self-care (01) ==
PROVIDERS: Emergency Provider Nurse Practitioner Family; PCP Internal Medicine
DX: R30.0 Dysuria (principal); K31.84 Gastroparesis
CPT/HCPCS: 81003; 87086; 99213; G0463